=== PATIENT | female | born 2000 | race Caucasian/White ===

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

== ENCOUNTER 2021-12-18 08:02 | Day surgery (SDC) | payer OTHER ==
[~2021-12-18] VITALS: Ht 160 cm; Wt 58.6 kg
[2021-12-18] MEDS ORDERED: XYZAL5 MG PO (08:25)
[2021-12-18] MEDS ORDERED: PRIL40 PO (08:26)
[2021-12-18] MEDS ORDERED: PROBIOTIC (08:27)
[2021-12-18] MEDS ORDERED: MELATONIN PO (08:28)
[2021-12-18 08:35] VITALS: BP 134/78; PULSE 97; TEMP 97.8
[2021-12-18 09:40] VITALS: BP 113/66; PULSE 91; TEMP 98.2
[2021-12-18 09:55] VITALS: BP 117/77; PULSE 77
[2021-12-18 10:10] VITALS: BP 116/78; PULSE 64
--- NOTE | 2021-12-18 10:51 | NUR ---
0940 - PT arrived from procedure drowsy but oriented. PT denies nausea and pain. PT ambulated 1:1 from cart to chair with minimal difficulty. Monitors applied and VSS. Mother and SO are present. Room report obtained. PT provided with ice water and a muffin per request. PT oriented to room and call izquierdo, within reach. Warm blankets applied. 0955 - VSS. is speaking with PT. Call izquierdo remains within reach. 1010 - VSS. PT expressed desire to be discharged. IV discontinued. Catheter tip intact. Pressure bandage appled. NO redness or swelling noted. DC instructions and educational material reviewed with the PT, who verbalized understanding and signed the realted paperwork. Questions answered to PT satisfaction. PT denied needing RN assistance changing into personal clothes, call izquierdo remains within reach if needed. 1025 - PT dismissed from endo via wheelchair to the PT entrence by Rebecca HAYNES. PT's mother has DC packet and personal belongings. PT transferred into the care of her S.O who is driving private car.
== END 2021-12-18 10:40 ==
LOC: SDCO 08:02
DX: K29.50 Unspecified chronic gastritis without bleeding (principal); K21.9 Gastro-esophageal reflux disease without esophagitis
CPT/HCPCS: J2704; J7030

== ENCOUNTER 2022-02-13 08:32 | Emergency (ER) | payer OTHER ==
[~2022-02-13] VITALS: Ht 160 cm; Wt 59.1 kg
[~2022-02-13 08:32] MED LIST: MELATONIN PO; PRIL40 PO; PROBIOTIC; XYZAL5 MG PO
[2022-02-13 09:26] LABS: MEAN CELL VOLUME 85 fl (80.0-95.0); MEAN CORPUSCULAR HEMOGLOBIN 28 pg (26-32); MEAN CORPUSCULAR HGB CONC 33 g/dl (33.0-37.0); MEAN PLATELET VOLUME 10.2 fl (7.4-10.4); PLATELET COUNT 269 K/mm3 (130-400); RED BLOOD COUNT 4.26 M/mm3 (4.10-5.30); REDCELL DISTRIBUTION WIDTH-CV 13.2 % (11.5-14.5)
[2022-02-13 09:35] LABS: HEMATOCRIT 36.2 % (35.0-45.0)
[2022-02-13 09:37] LABS: COLLECTION METHOD CLEAN CATCH
[2022-02-13 09:46] LABS: ALANINE AMINOTRANSFERASE 26 U/L (0-55); ALBUMIN 3.5 gm/dL (3.5-5.0); ALKALINE PHOSPHATASE 100 U/L (40-150); ANION GAP 11 mmol/L (7-16); AST,SGOT 18 U/L (5-34); BLOOD UREA NITROGEN 8 mg/dL (7-19); C-REACTIVE PROTEIN 13.43 mg/dL (0.00-0.50); CALCIUM 8.9 mg/dL (8.4-10.2); CARBON DIOXIDE 21 mmol/L (22-29); CHLORIDE 105 mmol/L (98-107); CREATININE, serum 0.82 mg/dL (0.57-1.11); GLUCOSE 106 mg/dL (70-99); POTASSIUM 3.6 mmol/L (3.5-4.5); SODIUM 137 mmol/L (136-145); TOTAL PROTEIN 7.4 gm/dL (6.2-8.1)
[2022-02-13 09:49] LABS: PH 6.5 (5.0-8.5); URINE APPEARANCE Clear (CLEAR/HAZY); URINE COLOR Yellow (YELLOW)
[2022-02-13 09:50] LABS: BAND 24 % (0-10); LYMPHOCYTE 8 % (20.0-51.0); NEUTROPHILS 66 % (42.0-75.2); PLATELET ESTIMATE NORMAL (NORMAL)
[2022-02-13 09:50] LABS: URINE BLOOD TRACE-INTACT (NEGATIVE); URINE GLUCOSE Negative (NEGATIVE); URINE KETONE 3+ (NEGATIVE); URINE NITRATE Negative (NEGATIVE); URINE PROTEIN(semi-quant) 1+ (NEGATIVE)
[2022-02-13 10:03] LABS: LIPASE < 4 U/L (8-78)
[2022-02-13 10:20] LABS: MUCOUS Present (NOT PRESENT); URINE BACTERIA Rare /hpf (NONE SEEN)
[2022-02-13] MEDS ORDERED: NORCO 325 MG-51 TAB PO (12:30)
[2022-02-13 14:22] LABS: HEMOGLOBIN 10.9 g/dl (12.0-15.0); MEAN CELL VOLUME 85 fl (80.0-95.0); MEAN CORPUSCULAR HEMOGLOBIN 28 pg (26-32); MEAN CORPUSCULAR HGB CONC 34 g/dl (33.0-37.0); MEAN PLATELET VOLUME 10.4 fl (7.4-10.4); PLATELET COUNT 231 K/mm3 (130-400); RED BLOOD COUNT 3.84 M/mm3 (4.10-5.30); REDCELL DISTRIBUTION WIDTH-CV 13.2 % (11.5-14.5)
[2022-02-13 14:26] VITALS: TEMP 103.1
[2022-02-13 14:26] LABS: HEMATOCRIT 32.5 % (35.0-45.0)
[2022-02-13 14:45] LABS: BAND 15 % (0-10); LYMPHOCYTE 9 % (20.0-51.0); NEUTROPHILS 73 % (42.0-75.2); PLATELET ESTIMATE NORMAL (NORMAL)
[2022-02-13 15:18] VITALS: BP 108/53; PULSE 99
== END 2022-02-13 15:32 | disposition home or self-care (01) ==
LOC: COL.ER 08:32
PROVIDERS: Family Medicine
DX: N12 Tubulo-interstitial nephritis, not specified as acute or chronic (principal); Z32.02 Encounter for pregnancy test, result negative; Z79.2 Long term (current) use of antibiotics
CPT/HCPCS: J0696; J2270; J2405; J7030; J7120; Q9967